=== PATIENT | female | born 1975 | race American Indian/Alaskan Native ===

== ENCOUNTER 2019-06-08 11:45 | Outpatient (CLI) | payer OTHER | END 2019-06-08 12:59 | disposition home or self-care (01) | LOC: NST 11:45 | DX: Z34.83 Encounter for supervision of other normal pregnancy, third trimester (principal) ==

== ENCOUNTER 2019-07-02 10:34 | Inpatient (IN) | payer OTHER ==
[~2019-07-02] VITALS: Ht 167.6 cm; Wt 79.4 kg
[2019-07-04] MEDS ORDERED: LEVO-T112 MCG PO (07:53)
== END 2019-07-05 09:02 | disposition home or self-care (01) | DRG 833 ==
LOC: OBS/DEL 10:34 → LDR 07-03 07:44 → OB/GYN 07-03 07:44
PROVIDERS: ADMIT Obstetrics & Gynecology
PROC: 4A1HXCZ Monitoring of Products of Conception, Cardiac Rate, External Approach (ICD-10-PCS; principal; 2019-07-03)
DX: O47.03 False labor before 37 completed weeks of gestation, third trimester (principal)

== ENCOUNTER 2019-07-12 10:34 | Outpatient (CLI) | payer OTHER ==
[~2019-07-12 10:34] MED LIST: LEVO-T112 MCG PO
== END 2019-07-12 11:04 | disposition home or self-care (01) ==
LOC: NST 10:34
DX: Z34.83 Encounter for supervision of other normal pregnancy, third trimester (principal)

== ENCOUNTER 2019-07-12 12:47 | Inpatient (IN) | payer OTHER ==
[~2019-07-12] VITALS: Ht 167.6 cm; Wt 3.6 kg
[2019-07-20] MEDS ORDERED: NIFEDIPINE20 MG PO (13:25)
[2019-07-20] MEDS ORDERED: PRENATAL 19 TA1 EAC1 PO (13:26)
[2019-08-01] MEDS ORDERED: NIFE60TA3 PO (10:44)
== END 2019-08-04 16:30 | disposition home or self-care (01) | DRG 788 ==
LOC: OB/GYN 07-27 12:30 → LDR 08-01 07:00 → O/R 08-01 09:03 → OB/GYN 08-01 09:03 → LDR 08-01 12:30 → OB/GYN 08-01 15:29
PROVIDERS: ADMIT Obstetrics & Gynecology
PROC: 4A1HXFZ Monitoring of Products of Conception, Cardiac Rhythm, External Approach (ICD-10-PCS; 2019-08-01)
PROC: 4A033R1 Measurement of Arterial Saturation, Peripheral, Percutaneous Approach (ICD-10-PCS; 2019-08-01)
PROC: 3E0F7GC Introduction of Other Therapeutic Substance into Respiratory Tract, Via Natural or Artificial Opening (ICD-10-PCS; 2019-08-01)
PROC: 10D00Z1 Extraction of Products of Conception, Low, Open Approach (ICD-10-PCS; principal; 2019-08-01 07:00)
DX: O34.593 Maternal care for other abnormalities of gravid uterus, third trimester (principal); Z3A.39 39 weeks gestation of pregnancy; Z37.0 Single live birth; Z98.890 Other specified postprocedural states

== ENCOUNTER 2019-07-20 09:48 | Outpatient (CLI) | payer OTHER ==
[2019-07-20] MEDS ORDERED: NIFEDIPINE20 MG PO (13:25)
[2019-07-20] MEDS ORDERED: PRENATAL 19 TA1 EAC1 PO (13:26)
== END 2019-07-20 10:30 | disposition home or self-care (01) ==
LOC: NST 09:48
DX: Z34.83 Encounter for supervision of other normal pregnancy, third trimester (principal)

== ENCOUNTER 2021-11-25 09:30 | Inpatient (IN) | payer OTHER ==
[~2021-11-25] VITALS: Ht 167.6 cm; Wt 78.9 kg
[~2021-11-25 09:30] MED LIST changes: +NIFE60TA3 PO; +NIFEDIPINE20 MG PO; +PRENATAL 19 TA1 EAC1 PO
== END 2021-11-29 13:13 | disposition home or self-care (01) | DRG 788 ==
LOC: OB/GYN 11-27 06:36 → LDR 11-27 06:36 → OB/GYN 11-27 12:22
PROVIDERS: Obstetrics & Gynecology; ADMIT Obstetrics & Gynecology; ATTEND Obstetrics & Gynecology
PROC: 4A1HXCZ Monitoring of Products of Conception, Cardiac Rate, External Approach (ICD-10-PCS; 2021-11-27)
PROC: 10D00Z1 Extraction of Products of Conception, Low, Open Approach (ICD-10-PCS; principal; 2021-11-27 10:15)
DX: O34.211 Maternal care for low transverse scar from previous cesarean delivery (principal); Z3A.37 37 weeks gestation of pregnancy; Z37.0 Single live birth; Z20.822 Contact with and (suspected) exposure to COVID-19